=== PATIENT | female | born 1980 | race American Indian/Alaskan Native ===

== ENCOUNTER 2017-05-10 10:17 | Emergency (ER) | payer SELFPAY ==
[2017-05-10] MEDS ORDERED: BENADRYL PO ONE (12:21)
--- NOTE | 2017-05-10 12:21 | Emergency Department Report ---
HPI - General Chief Complaint: Allergic Reaction Time Seen by Provider: 05/10/17 11:42 - HPI HPI: 36-year-old female with past medical history diabetes presents with complaint of hives to her face scalp back of her neck and ears status post using a black hair dye last night. Patient states that yesterday approximately 8:52 PM she applied a black hair dye subsequently developed hives over the next few hours. Patient denies any shortness of breath no difficulty breathing no diffuse rash on body. The area of the lesions is confined to the scalp. On exam patient has visible hives around for head ears and back of neck. She is speaking in full sentences in no respiratory distress and no audible wheezing or stridor. States she has not taken any medicines for the allergic reaction. ED Past Medical Hx - Past Medical History Previous Medical History?: Yes Hx Diabetes: Yes Additional medical history: sickle cell trait - Surgical History Past Surgical History?: Yes Additional Surgical History: x3 - Social History Smoking Status: Current Every Day Smoker Substance Use Type: None - Medications Home Medications: Home Medications Medication Instructions Recorded Confirmed Last Taken Type EPINEPHrine (NF) [Epipen (Nf)] 0.3 mg IM ONCE PRN #1 syringekit 05/10/17 Unknown Rx Famotidine [Pepcid] 20 mg PO BID PRN #30 tablet 05/10/17 Unknown Rx Hydroxyzine HCl 25 mg PO BID PRN #20 tablet 05/10/17 Unknown Rx Loratadine [Claritin] 10 mg PO DAILY #30 tablet 05/10/17 Unknown Rx Prednisone [predniSONE 10 mg 10 mg PO .TAPER #1 tab.ds.pk 05/10/17 Unknown Rx (6-Day Pack, 21 Tabs)] ED Review of Systems ROS: Stated complaint: ALLERGIC REACTION TO CHEMICAL DYE Other details as noted in HPI Constitutional: denies: chills, fever Eyes: denies: eye pain, eye discharge, vision change ENT: denies: ear pain, throat pain Respiratory: denies: cough, shortness of breath, wheezing Cardiovascular: denies: chest pain, palpitations Endocrine: no symptoms reported Gastrointestinal: denies: abdominal pain, nausea, diarrhea Genitourinary: denies: urgency, dysuria, discharge Musculoskeletal: denies: back pain, joint swelling, arthralgia Skin: denies: rash, lesions Neurological: denies: headache, weakness, paresthesias Psychiatric: denies: anxiety, depression Hematological/Lymphatic: denies: easy bleeding, easy bruising Physical Exam - Physical Exam Vital Signs: Vital Signs 05/10/17 10:43 Temperature 98.7 F Pulse Rate 68 Respiratory 18 Rate Blood Pressure 126/74 O2 Sat by Pulse 98 Oximetry General: General: Well appearing, well nourished, in no distress. Oriented x 3, normal mood and affect .Ambulating without difficulty. Skin: Visible hives and irritated skin around scalp or forehead and ears Head: Normocephalic, atraumatic, no visible or palpable masses, depressions, or scaring. Eyes: EOMI, PERRLA Ears: EACs clear, TMs translucent & mobile, ossicles nl appearance, hearing intact. Pharynx: Oropharynx is patent. Mucosa non-inflamed, no tonsillar hypertrophy or exudate Neck: Supple, without lesions, bruits, or adenopathy, thyroid non-enlarged and non-tender Heart: No cardiomegaly or thrills; regular rate and rhythm, no murmur or gallop Lungs: Clear to auscultation bilaterally Abdomen: Bowel sounds normal, no tenderness, organomegaly, masses, or hernia ED Course Vital Signs 05/10/17 10:43 Temperature 98.7 F Pulse Rate 68 Respiratory 18 Rate Blood Pressure 126/74 O2 Sat by Pulse 98 Oximetry ED Medical Decision Making - Medical Decision Making A/P: Allergic dermatitis, seborrheic dermatitis scalp 1-course of prednisone, Pepcid, hydroxyzine 2-Claritin 3-no signs of angioedema. I educated patient on signs of angioedema and advised her to return to the ED for any swelling of her face and lips or tongue or difficulty breathing 4- EpiPen for emergencies/anaphylaxis Critical care attestation.: If time is entered above; I have spent that time in minutes in the direct care of this critically ill patient, excluding procedure time. ED Disposition Clinical Impression: Hives Allergic reaction Qualifiers: Encounter type: initial encounter Qualified Code(s): T78.40XA - Allergy, unspecified, initial encounter Disposition: - TO HOME OR SELFCARE Is pt being admited?: No Does the pt Need Aspirin: No Condition: Stable Instructions: Urticaria (ED), Allergies (ED) Prescriptions: EPINEPHrine (NF) [Epipen (Nf)] 0.3 mg IM ONCE PRN #1 syringekit PRN Reason: Anaphylaxis Famotidine [Pepcid] 20 mg PO BID PRN #30 tablet PRN Reason: Itching Hydroxyzine HCl 25 mg PO BID PRN #20 tablet PRN Reason: Itching Loratadine [Claritin] 10 mg PO DAILY #30 tablet Prednisone [predniSONE 10 mg (6-Day Pack, 21 Tabs)] 10 mg PO .TAPER #1 tab.ds.pk Referrals: LILA VIDAL MD [Staff Physician] - 3-5 Days Forms: Work/School Release Form(ED), Accompanied Note
[2017-05-10] MEDS ORDERED: PEPCID PO ONE (12:22)
[2017-05-10 13:28] VITALS: BP 106/71
== END 2017-05-10 13:27 | disposition home or self-care (01) ==
LOC: ED 10:17
DX: L50.0 Allergic urticaria (principal); E11.9 Type 2 diabetes mellitus without complications; F17.210 Nicotine dependence, cigarettes, uncomplicated
CPT/HCPCS: 96372; 99282; J2930

== ENCOUNTER 2017-05-21 07:55 | Emergency (ER) | payer SELFPAY ==
[2017-05-21 08:20] VITALS: BP 116/80
[2017-05-21] MEDS ORDERED: REGLAN PO ONE (10:12)
[2017-05-21] MEDS ORDERED: BENADRYL PO ONE (10:12)
--- NOTE | 2017-05-21 14:35 | Emergency Department Report ---
Entered by SB MCCABE, acting as scribe for LUCAS WILKINSON PA. ED Headache HPI - General Chief Complaint: Headache Stated Complaint: SEVERE MIGRAINES Time Seen by Provider: 05/21/17 09:40 Source: patient Exam Limitations: no limitations - History of Present Illness Initial Comments: 36 y/o female with a PMHx of diabetes mellitus and sickle cell trait presents to the ED c/o a frontal headache that began 1 day ago. Rates pain an 8/10 in severity, which she describes as sharp in quality. Aggravated with lights and alleviated with dark room. Denies any recent head injury/trauma, fall injury, blurry vision, fever, chills, nausea, vomiting, dizziness, stiff neck, ear pain , congestion, cough, chest pain, and SOB. Denies Hx of headaches. Took Tylenol with minor relief. NKDA. Timing/Duration: 24 hours Quality: moderate, achy Head Injury Location: frontal Recent Head Trauma: no recent headache/trauma Modifying Factors: improves with: other (dark room). worse with: exposure to light Associated Symptoms: denies symptoms. denies: confusion, fatigue, facial pain, fever/chills, flushing, loss of consciousness, nausea/vomiting, nasal congestion , nasal drainage, numbness in legs/feet, rash, seizures, sinus infection, stiff neck, vision changes, weakness Allergies/Adverse Reactions: Allergies black dye Adverse Reaction (Uncoded 05/10/17 10:41) Swelling Home Medications: Ambulatory Orders EPINEPHrine (NF) [Epipen (Nf)] 0.3 mg IM ONCE PRN #1 syringekit 05/10/17 Famotidine [Pepcid] 20 mg PO BID PRN #30 tablet 05/10/17 Hydroxyzine HCl 25 mg PO BID PRN #20 tablet 05/10/17 Loratadine [Claritin] 10 mg PO DAILY #30 tablet 05/10/17 Prednisone [predniSONE 10 mg (6-Day Pack, 21 Tabs)] 10 mg PO .TAPER #1 tab.ds.pk 05/10/17 Ibuprofen [Motrin] 600 mg PO Q8H PRN #30 tablet 05/21/17 Prochlorperazine [Compazine] 10 mg PO Q8HR #24 tablet 05/21/17 ED Review of Systems Comment: All other systems reviewed and negative Constitutional: denies: chills, fever Eyes: denies: eye pain, eye discharge, vision change ENT: denies: ear pain, throat pain Respiratory: denies: cough, orthopnea, shortness of breath, SOB with exertion, SOB at rest, stridor, wheezing Cardiovascular: denies: chest pain, palpitations, dyspnea on exertion, orthopnea , edema, syncope, paroxysmal nocturnal dyspnea Endocrine: no symptoms reported Gastrointestinal: denies: abdominal pain, nausea, vomiting, diarrhea Genitourinary: denies: urgency, dysuria, discharge Musculoskeletal: denies: back pain, joint swelling, arthralgia, myalgia Skin: denies: rash, lesions Neurological: headache (frontal). denies: weakness, numbness, paresthesias, confusion, abnormal gait, vertigo Psychiatric: denies: anxiety, depression Hematological/Lymphatic: denies: easy bleeding, easy bruising ED Past Medical Hx - Past Medical History Previous Medical History?: Yes Hx Diabetes: Yes Additional medical history: sickle cell trait - Surgical History Past Surgical History?: Yes Additional Surgical History: x3 - Family History Family history: no significant - Social History Smoking Status: Current Every Day Smoker Substance Use Type: Alcohol - Medications Home Medications: Home Medications Medication Instructions Recorded Confirmed Last Taken Type EPINEPHrine (NF) [Epipen (Nf)] 0.3 mg IM ONCE PRN #1 syringekit 05/10/17 Unknown Rx Famotidine [Pepcid] 20 mg PO BID PRN #30 tablet 05/10/17 Unknown Rx Hydroxyzine HCl 25 mg PO BID PRN #20 tablet 05/10/17 Unknown Rx Loratadine [Claritin] 10 mg PO DAILY #30 tablet 05/10/17 Unknown Rx Prednisone [predniSONE 10 mg 10 mg PO .TAPER #1 tab.ds.pk 05/10/17 Unknown Rx (6-Day Pack, 21 Tabs)] Ibuprofen [Motrin] 600 mg PO Q8H PRN #30 tablet 05/21/17 Unknown Rx Prochlorperazine [Compazine] 10 mg PO Q8HR #24 tablet 05/21/17 Unknown Rx ED Physical Exam - General Limitations: No Limitations General appearance: alert, in no apparent distress - Head Head exam: Present: atraumatic, normocephalic - Eye Eye exam: Present: normal appearance, PERRL, EOMI Pupils: Present: normal accommodation - ENT ENT exam: Present: normal exam, normal orophraynx, mucous membranes moist, TM's normal bilaterally, normal external ear exam - Neck Neck exam: Present: normal inspection, full ROM. Absent: tenderness, meningismus, lymphadenopathy, thyromegaly - Respiratory Respiratory exam: Present: normal lung sounds bilaterally. Absent: respiratory distress, wheezes, rales, rhonchi, stridor, chest wall tenderness, accessory muscle use, decreased breath sounds - Cardiovascular Cardiovascular Exam: Present: regular rate, normal rhythm, normal heart sounds. Absent: systolic murmur, diastolic murmur, rubs, gallop - GI/Abdominal GI/Abdominal exam: Present: soft, normal bowel sounds. Absent: distended - Extremities Exam Extremities exam: Present: normal inspection, full ROM, normal capillary refill - Back Exam Back exam: Present: normal inspection, full ROM. Absent: tenderness - Neurological Exam Neurological exam: Present: alert, oriented X3, CN II-XII intact, normal gait, reflexes normal. Absent: motor sensory deficit - Psychiatric Psychiatric exam: Present: normal affect, normal mood - Skin Skin exam: Present: warm, dry, intact. Absent: rash ED Course Vital Signs 05/21/17 08:15 Temperature 98.4 F Pulse Rate 82 Respiratory 16 Rate Blood Pressure 116/80 O2 Sat by Pulse 98 Oximetry ED Medical Decision Making - Medical Decision Making 36 year-old female presents with an acute headache ED course: Patient given Reglan and Benadryl Vital signs stable patient is in no acute or respiratory distress. Patient has no neural deficit, she is neurologically intact. Discussed treatment in ED with patient Discussed with patient to rest Discussed with patient to eat regularly and drink lots of fluid Discussed with patient to follow up with PCP as referred, and to return to the ED if symptoms return or worsen. Patient states understanding and will follow instructions. Pt verbally states understanding and will comply to follow up. ED Disposition Clinical Impression: Headache Disposition: [id number] TO HOME OR SELFCARE Is pt being admited?: No Does the pt Need Aspirin: No Condition: Stable Instructions: Migraine Headache (ED), Acute Headache (ED) Additional Instructions: If the symptoms wosens return to ED Take your medication as prescribed. Prescriptions: Ibuprofen [Motrin] 600 mg PO Q8H PRN #30 tablet PRN Reason: Pain Prochlorperazine [Compazine] 10 mg PO Q8HR #24 tablet Referrals: PRIMARY CARE,MD [Primary Care Provider] - 3-5 Days [facility] [Outside] - 3-5 Days [facility] [Outside] - 3-5 Days Forms: Accompanied Note, Work/School Release Form(ED) Time of Disposition: 11:06 This documentation as recorded by the ESTELLE aguilar JASMINE,accurately reflects the service I personally performed and the decisions made by ,LUCAS WILKINSON PA.
== END 2017-05-21 11:17 | disposition home or self-care (01) ==
LOC: ED 07:55
DX: R51 Headache (principal); F17.200 Nicotine dependence, unspecified, uncomplicated; E11.9 Type 2 diabetes mellitus without complications; Z88.8 Allergy status to other drugs, medicaments and biological substances
CPT/HCPCS: 82962; 99283